=== PATIENT | female | born 1975 | race Caucasian/White ===

== ENCOUNTER 2024-07-07 17:49 | Emergency (ER) | payer OTHER ==
[~2024-07-07] VITALS: Ht 165.1 cm; Wt 94.3 kg
[~2024-07-07 17:49] MED LIST: ALEVE220 MG PO; JUNEL1 EAC1 PO; METOPROLOL SUCC25 MG PO; RIZATRIPTAN5 MG PO
[2024-07-07 20:39] LABS: BILIRUBIN, URINE NEGATIVE (negative); BLOOD/HGB, URINE NEGATIVE (Negative); KETONE, URINE NEGATIVE (Negative); LEUK ESTERASE, URINE NEGATIVE (negative); NITRITE, URINE NEGATIVE (negative)
[2024-07-07 20:40] LABS: BASOPHILS 0.2 % (0-2); EOSINOPHILS 1.4 % (0-6); HEMATOCRIT 44.5 % (35.0-50.0); HEMOGLOBIN 15.5 g/dL (12.0-18.0); LYMPHOCYTES 29.5 % (24-44); MCH 32.1 (27-36); MCHC 34.8 g/dl (30-36); MCV 92.3 fl (81-99); MONOCYTES 8.5 % (0-12); NEUTROPHILS 60.4 % (39-80); PLATELET COUNT 253 K/uL (140-440); RBC 4.83 M/ul (4.3-5.7); RDW 13.3 (10.5-15.0)
[2024-07-07] MEDS ORDERED: ondansetron HCL 4 MG/2 ML VIAL IV ONE (20:45)
[2024-07-07] MEDS ORDERED: KETOROLAC TROMETHAMINE 15 MG/ML VIAL IV ONE (20:45)
[2024-07-07] MEDS ORDERED: SODIUM CHLORIDE 0.9% 1,000 ML IV ONE (20:45)
[2024-07-07 20:49] LABS: ALBUMIN/GLOBULIN RATIO 1.03 (1.1-2.4); ANION GAP 12.4 (7-21); BILIRUBIN, TOTAL 0.6 ng/dL (0.2-1.0); BUN/CREATININE RATIO 13.86 (6.0-28.6); CALCIUM 9.3 mg/dL (8.5-10.1); CREATININE, SERUM 1.01 mg/dL (0.55-1.02); POTASSIUM 3.4 mmol/L (3.5-5.1); PROTEIN, TOTAL 7.9 g/dL (6.4-8.2)
[2024-07-07] MEDS ORDERED: HYDROCODON-ACE1 EA10 PO (22:44)
[2024-07-07] MEDS ORDERED: ONDANSETRON ODT8 MG PO (22:44)
[2024-07-07] MEDS ORDERED: ONDANSETRON 4 MG HOME.PACK SL ONE (23:00)
[2024-07-07] MEDS ORDERED: HYDROCODONE BIT/ACETAMINOPHEN 5/325 MG 1 TAB HOME.PACK PO ONE (23:00)
[2024-07-07 23:25] VITALS: BP 130/80
== END 2024-07-07 23:26 | disposition home or self-care (01) ==
LOC: ED 17:49
PROVIDERS: Family Medicine
DX: K80.20 Calculus of gallbladder without cholecystitis without obstruction (principal); Z88.5 Allergy status to narcotic agent; Z79.899 Other long term (current) drug therapy
CPT/HCPCS: 36415; 76705; 80053; 81003; 83690; 85025; 96374; 96375; 99284-25; A9270; J1885; J2405; J7030

== ENCOUNTER 2024-07-09 23:13 | Observation (INO) | payer OTHER ==
[~2024-07-09] VITALS: Ht 165.1 cm; Wt 93.0 kg
[~2024-07-09 23:13] MED LIST changes: +HYDROCODON-ACE1 EA10 PO; +ONDANSETRON ODT8 MG PO
--- OUTSIDE RECORDS SUMMARY | 2024-07-09 23:20 | XMS ---
PreManage Notification: ARACELIS CAMEJO Security Camera Person Events No recent Security Events currently on file CRITERIA MET - [facility] - 2 Visits in 30 Days CARE PROVIDERS There are no care providers on record at this time. Jailyn has no Care Guidelines for this patient. Ayde V[facility]IT COUNT (12 MO.) 2 [facility] NOTE: Visits indicate total known visits. ED/C VISIT TRACKING (12 MO.) [facility]24 23[facility] [place] [facility] COMPLAINT: - ABDOMINAL PAIN 07/07/2024 17:50 [facility] [place] TYPE: Emergency COMPLAINT: - FLANK PAIN DIAGNOSES: - Allergy status to narcotic agent - Calculus of gallbladder without cholecystitis without obstruction - Other fci (current) drug therapy - Right upper quadrant pain INPATIENT VISIT TRACKING (12 MO.) No inpatient visits to display in this time frame [email or web address]
[2024-07-09 23:38] LABS: BASOPHILS 0.6 % (0-2); EOSINOPHILS 0.8 % (0-6); LYMPHOCYTES 25.3 % (24-44); MCH 31.6 (27-36); MCHC 34.1 g/dl (30-36); MCV 92.8 fl (81-99); MONOCYTES 7.7 % (0-12); NEUTROPHILS 65.6 % (39-80); PLATELET COUNT 243 K/uL (140-440); RBC 4.74 M/ul (4.3-5.7); RDW 13.1 (10.5-15.0)
[2024-07-09] MEDS ORDERED: HYDROmorphone HCL 1 MG/ML SYR IV PRN (23:45)
[2024-07-09] MEDS ORDERED: ondansetron HCL 4 MG/2 ML VIAL IV ONE (23:45)
[2024-07-09 23:54] LABS: ALBUMIN 3.7 g/dL (3.4-5.0); ALBUMIN/GLOBULIN RATIO 0.95 (1.1-2.4); ANION GAP 14.2 (7-21); BILIRUBIN, TOTAL 0.8 ng/dL (0.2-1.0); BUN/CREATININE RATIO 13.46 (6.0-28.6); CALCIUM 9.1 mg/dL (8.5-10.1); CREATININE, SERUM 1.04 mg/dL (0.55-1.02); POTASSIUM 4.2 mmol/L (3.5-5.1); PROTEIN, TOTAL 7.6 g/dL (6.4-8.2)
[2024-07-10] VITALS (10 sets, daily range): BP systolic 128–145; BP diastolic 76–91
[2024-07-10] MEDS ORDERED: ACETAMINOPHEN 325 MG TAB PO PRN ×3 (00:45→17:15)
[2024-07-10] MEDS ORDERED: metroNIDAZOLE/SODIUM CHLORIDE 500 MG/100 ML PIGGYBACK IV SCH ×2 (00:45→09:00)
[2024-07-10] MEDS ORDERED: ondansetron HCL 4 MG/2 ML VIAL IV PRN ×3 (00:45→17:15)
[2024-07-10] MEDS ORDERED: droPERidol 5 MG/2 ML VIAL IV ONE (00:45)
[2024-07-10] MEDS ORDERED: HYDROmorphone HCL 1 MG/ML SYR IV PRN ×3 (00:45→17:15)
[2024-07-10] MEDS ORDERED: HYDROmorphone HCL 1 MG/ML SYR IV ONE (00:45)
[2024-07-10] MEDS ORDERED: DEXTROSE 5% - LACTATED RINGERS 1,000 ML IV SCH ×2 (00:45→08:30)
[2024-07-10] MEDS ORDERED: CEFTRIAXONE/SODIUM CHLORIDE 2 GM/100 ML PIGGYBACK IV SCH ×2 (00:45→09:00)
[2024-07-10 05:33] LABS: BASOPHILS 0.2 % (0-2); EOSINOPHILS 0.3 % (0-6); HEMATOCRIT 39.6 % (35.0-50.0); HEMOGLOBIN 13.9 g/dL (12.0-18.0); LYMPHOCYTES 17.6 % (24-44); MCH 32.3 (27-36); MCHC 35.2 g/dl (30-36); MCV 91.7 fl (81-99); MONOCYTES 7.1 % (0-12); NEUTROPHILS 74.8 % (39-80); PLATELET COUNT 217 K/uL (140-440); RBC 4.32 M/ul (4.3-5.7); RDW 12.8 (10.5-15.0)
[2024-07-10 05:45] LABS: ALBUMIN 3.4 g/dL (3.4-5.0); ALBUMIN/GLOBULIN RATIO 0.89 (1.1-2.4); ANION GAP 13.1 (7-21); BILIRUBIN, TOTAL 0.5 ng/dL (0.2-1.0); BUN/CREATININE RATIO 12.64 (6.0-28.6); CALCIUM 8.5 mg/dL (8.5-10.1); CREATININE, SERUM 0.87 mg/dL (0.55-1.02); MAGNESIUM 1.9 mg/dL (1.8-2.4); POTASSIUM 4.1 mmol/L (3.5-5.1); PROTEIN, TOTAL 7.2 g/dL (6.4-8.2)
[2024-07-10] MEDS ORDERED: ACETAMINOPHEN 650 MG SUPP PR PRN (08:30)
[2024-07-10] MEDS ORDERED: PROCHLORPERAZINE EDISYLATE 10 MG/2 ML VIAL IV PRN ×2 (08:30→17:15)
[2024-07-10] MEDS ORDERED: PANTOPRAZOLE SODIUM 40 MG/10 ML VIAL IV SCH (09:00)
[2024-07-10] MEDS ORDERED: ENOXAPARIN SODIUM 40 MG/0.4 ML SYR SUB-Q SCH (09:00)
--- NOTE | 2024-07-10 09:14 | CONS ---
[facility] [address] [place], [place] [address] Signed DATE OF CONSULTATION: 07/10/2024 CHIEF COMPLAINT: Right upper quadrant abdominal pain. HISTORY OF PRESENT ILLNESS: Aracelis is a 49-year-old obese female, who for four days now has been having right upper quadrant epigastric abdominal pain with nausea and some vomiting. She came to the ER on 07/07/2024. She was found to have cholelithiasis without any evidence of cholecystitis. Unfortunately, we did not have any nursing staff to be able to admit her. She went home on Zofran and [place]. She came back with continued symptoms. She has now been admitted and started on Rocephin and Flagyl. In reviewing the ultrasound, she also has a 16 cm lesion in the right lobe of her liver. She has been on oral contraceptive pills since she was a teenager. Of course, the radiologist recommended an MRI. She has a 3.7 cm gallstone with some sludge. The wall was not thickened. There is negative Dean sign and the common bile duct is unremarkable at 2.9 mm. PAST MEDICAL HISTORY: Hypertension, obesity, and postoperative nausea and vomiting. PAST SURGICAL HISTORY: Includes laparoscopic converted to an open appendectomy around 1997 and . SOCIAL HISTORY: She does not smoke or drink. Marina Arreaga is her primary care provider. Darron Ferreira is her at . She has one daughter. 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 FAMILY HISTORY: Her dad of prostate cancer. Maternal grandmother had liver cancer. REVIEW OF SYSTEMS: She told me there is no metal in her body that she is aware of. ALLERGIES: Morphine causes pruritus. MEDICATIONS: [place], Zofran, Aleve, estrogen, metoprolol 25 mg p.o. daily, and rizatriptan. PHYSICAL EXAMINATION: VITAL SIGNS: Her blood pressure is 128/76, heart rate is 76, respiratory rate is 15, her temperature is 98.4, and she is on 97% on room air. She is 5 feet 5 inches, at 93 Electronically Signed By: TRISH STEVENS MD 07/10/24 0914 PATIENT NAME: ARACELIS FERREIRA CONSULTATION DATE OF : 71 REPORT #: [id number] PHYSICIAN: TRISH STEVENS MD PCP: MARINA BLACKMON REPORT IS CONFIDENTIAL AND NOT TO BE RELEASED WITHOUT AUTHORIZATION [facility] [address], [place] [address] Signed kg with a body mass index of 34. GENERAL: Aracelis is a 49-year-old female, lying supine in her hospital bed. She is a little uncomfortable from her upper abdominal pain. LUNGS: Clear to auscultation bilaterally. HEART: Regular rate and rhythm, without murmurs. ABDOMEN: Obese, but soft and a little tender in the right upper quadrant and epigastric area, I cannot palpate a mass. LABORATORY DATA: Her white blood count is 8.2, hemoglobin 13, neutrophils 74, and platelets 217. Total bilirubin 0.5, AST 14, ALT 39, alkaline phosphatase 78, and albumin is 3.4. Beta-hCG is negative. RADIOGRAPHIC STUDIES: Ultrasound from 07/07/2024 is reviewed, there is a 16 cm lesion in the right lobe of her liver. The radiologist is requesting an MRI. There is a 3.7 cm gallstone and associated sludge. The gallbladder wall is not thickened. There is no Dean sign. Common bile duct is unremarkable at 2.9 mm. The intrahepatic bile ducts are not dilated. ASSESSMENT AND PLAN: Aracelis is a 49-year-old obese female, who presents with symptomatic cholelithiasis; however, the ultrasound is concerning for 16 cm lesion in the right lobe of the liver and she has been using oral contraceptive medication since she was a teenager. The radiologist of course is asking for an MRI. I explained to Aracelis it would be christianson if we get that MRI completed before the gallbladder surgery. We will make that effort this morning; hopefully, we can work her in. In the meantime, I reviewed the above findings with her. I brought a brochure on the gallbladder, so we could look at that together. She understands the location and function of the gallbladder. She understands cholelithiasis. We reviewed laparoscopic versus open cholecystectomy. There is risk of surgery including, but not limited to bleeding, infection, scarring, change in contour and skin, damage to bowel, damage to main bile duct, incisional hernias and other unforeseen comorbidities. She is also aware of this lesion in the right lobe of the liver. Hopefully, we could get that MRI done today and get her gallbladder done following the MRI. She has expressed understanding and agrees with the above plan. Trish Stevens MD ALB/MODL /[id number] Electronically Signed By: TRISH STEVENS MD 07/10/24 0914 PATIENT NAME: ARACELIS FERREIRA CONSULTATION DATE OF : 71 REPORT #: [id number] PHYSICIAN: TRISH STEVENS MD PCP: MARINA BLACKMON REPORT IS CONFIDENTIAL AND NOT TO BE RELEASED WITHOUT AUTHORIZATION [address] [place] [address] Signed cc: Patient Chart MD Marina Sol PA Copies: TRISH STEVENS MD, LINDA PA ~ Electronically Signed By: TRISH STEVENS MD 07/10/2414 PATIENT NAME: ARACELIS FERREIRA CONSULTATION DATE OF : 71 REPORT #: [id number] PHYSICIAN: TRISH STEVENS MD PCP: MARINA BLACKMON REPORT IS CONFIDENTIAL AND NOT TO BE RELEASED WITHOUT AUTHORIZATION
[2024-07-10] MEDS ORDERED: LARIN FE 1-201 EACH PO (10:05)
[2024-07-10] MEDS ORDERED: RIZATRIPTAN5 M1 PO (10:06)
[2024-07-10] MEDS ORDERED: SEVOFLURANE 250 ML BTL INH ONE (13:18)
[2024-07-10] MEDS ORDERED: LIDOCAINE HCL 2% 5 ML SDV ONE (13:40)
[2024-07-10] MEDS ORDERED: KETOROLAC TROMETHAMINE 30 MG/ML VIAL ONE (13:40)
[2024-07-10] MEDS ORDERED: ondansetron HCL 4 MG/2 ML VIAL ONE (13:40)
[2024-07-10] MEDS ORDERED: fentaNYL citrate 100 MCG/2 ML VIAL ONE (13:40)
[2024-07-10] MEDS ORDERED: propofoL 200 MG/20 ML VIAL ONE (13:40)
[2024-07-10] MEDS ORDERED: SUGAMMADEX SODIUM 200 MG/2 ML ML ONE (13:40)
[2024-07-10] MEDS ORDERED: dexmedeTOMIDine HCl 200 MCG/2 ML VIAL ONE (13:40)
[2024-07-10] MEDS ORDERED: ACETAMINOPHEN 1,000 MG/100 ML VIAL ONE (13:40)
[2024-07-10] MEDS ORDERED: ROCURONIUM BROMIDE 50 MG/5 ML SYR ONE ×2 (13:40→15:17)
[2024-07-10] MEDS ORDERED: DEXAMETHASONE SOD PHOS 4 MG/ML VIAL ONE (13:40)
[2024-07-10] MEDS ORDERED: SUCCINYLCHOLINE IN 0.9% NACL 200 MG/10 ML SYRINGE ONE (13:40)
[2024-07-10] MEDS ORDERED: LIDOCAINE HCL 2% 20 MG/ML VIAL INJ ONE (13:40)
[2024-07-10] MEDS ORDERED: KETAMINE in NS 50 MG/5 ML SYR ONE (13:41)
[2024-07-10] MEDS ORDERED: SCOPOLAMINE 1 MG/3 DAYS PATCH 1 EACH TDSY ONE (13:41)
[2024-07-10] MEDS ORDERED: BUPIVACAINE HCL 0.25% 50 ML MDV ONE (13:54)
[2024-07-10] MEDS ORDERED: LIDOCAINE 1% W/ EPI 1:200,000 30 ML SDV ONE (13:54)
[2024-07-10] MEDS ORDERED: SODIUM CHLORIDE 0.9% 40 ML IV ONE (13:54)
[2024-07-10] MEDS ORDERED: iopamidoL 30 ML VIAL ONE (13:54)
[2024-07-10] MEDS ORDERED: CEFEPIME HCL/D5W 1 GM/100 ML PIGGYBACK IV SCH (14:00)
[2024-07-10] MEDS ORDERED: LACTATED RINGER'S 1,000 ML IV ONE (15:18)
[2024-07-10] MEDS ORDERED: NALOXONE HCL 0.4 MG SYR IV PRN (17:15)
[2024-07-10] MEDS ORDERED: fentaNYL citrate 50 MCG/ML SDV IV PRN (17:15)
[2024-07-10] MEDS ORDERED: OXYCODONE HCL 5 MG TAB PO PRN (17:15)
[2024-07-10] MEDS ORDERED: IBLOOD GLUCOSE TEST STRIP 1 EA TEST VI PRN (17:15)
[2024-07-10] MEDS ORDERED: droPERidol 5 MG/2 ML VIAL IV PRN (17:15)
[2024-07-10] MEDS ORDERED: DOCUSATE SODIUM 100 MG CAP PO SCH (21:00)
[2024-07-11 00:28] LABS: ALPHA FETOPROTEIN TUMOR MARKER 4 ng/mL (0-9)
[2024-07-11 01:57] VITALS: BP 127/85
[2024-07-11 02:00] VITALS: BP 127/85
[2024-07-11 05:33] LABS: BASOPHILS 0.3 % (0-2); HEMATOCRIT 39.9 % (35.0-50.0); HEMOGLOBIN 13.7 g/dL (12.0-18.0); LYMPHOCYTES 10.1 % (24-44); MCH 31.6 (27-36); MCHC 34.2 g/dl (30-36); MCV 92.5 fl (81-99); MONOCYTES 9.6 % (0-12); PLATELET COUNT 204 K/uL (140-440); RBC 4.32 M/ul (4.3-5.7); RDW 12.8 (10.5-15.0)
[2024-07-11 05:40] VITALS: BP 147/88
[2024-07-11 05:43] VITALS: BP 147/88
[2024-07-11 05:50] LABS: ALBUMIN 2.9 g/dL (3.4-5.0); ALBUMIN/GLOBULIN RATIO 0.81 (1.1-2.4); ANION GAP 13.9 (7-21); BILIRUBIN, TOTAL 0.5 ng/dL (0.2-1.0); BUN/CREATININE RATIO 8.75 (6.0-28.6); CALCIUM 8.6 mg/dL (8.5-10.1); CREATININE, SERUM 0.8 mg/dL (0.55-1.02); PHOSPHORUS, INORGANIC 1.7 mg/dL (2.5-4.9); POTASSIUM 3.9 mmol/L (3.5-5.1); PROTEIN, TOTAL 6.5 g/dL (6.4-8.2)
[2024-07-11] MEDS ORDERED: ENOXAPARIN SODIUM 30 MG/0.3 ML SYR SUB-Q SCH (09:00)
[2024-07-11] MEDS ORDERED: POLYETHYLENE GLYCOL 3350 1 PACKET PO SCH (09:00)
[2024-07-11] MEDS ORDERED: METOPROLOL SUCCINATE 25 MG TABCR PO SCH (09:00)
[2024-07-11] MEDS ORDERED: ENOXAPARIN SODIUM 40 MG/0.4 ML SYR SUB-Q SCH (09:00)
[2024-07-11] MEDS ORDERED: PANTOPRAZOLE SODIUM 40 MG TABEC PO SCH (09:00)
--- NOTE | 2024-07-11 09:33 | OR ---
[facility] [address] [place], [place] [address] Signed DATE OF OPERATION: 07/10/2024 SURGEON: Trish Stevens MD PREOPERATIVE DIAGNOSES: 1. Acute cholecystitis cholelithiasis (3.7 cm). 2. Giant right hepatic hemangioma (16 cm). POSTOPERATIVE DIAGNOSES: 1. Acute cholecystitis cholelithiasis (3.7 cm). 2. Giant right hepatic hemangioma (16 cm). PROCEDURES: 1. Laparoscopic cholecystectomy without intraoperative cholangiogram (prolonged and difficult at two hours and two nurses). 2. Placement subhepatic drain. ESTIMATED BLOOD LOSS: 25 mL. FINDINGS: Aracelis indeed had a very large 3.7 cm gallstone. She had a very thickened nearly intrahepatic gallbladder. She had a few adhesions around her umbilicus and had to be taken down as well. The triangle of Calot was not terribly difficult, but dissecting the gallbladder out of liver was extremely difficult. We had two nurses scrubbed in and it took a total of 2 hours and we omitted the intraoperative cholangiogram. That is more than double the amount of time we normally take. Consequently, the procedure was prolonged and difficult. INDICATIONS: Aracelis is a 49-year-old female who presented with about four days of right upper quadrant abdominal pain. We then have nurses available to us on the of this month, so she was sent home with [employer] [place], that was not working. She came back with ongoing symptoms. She was quite miserable. She was tender in the right upper quadrant, but her white count was normal. Liver function tests were normal. Beta-hCG was negative. The ultrasound showed a 16 cm lesion in the right hepatic lobe. There was a 3.7 cm gallstone and some sludge. There was apparently no gallbladder wall thickening and a negative Dean's sign. Common bile duct was normal at 2.9 mm. We ordered an MRI of the liver to evaluate that lesion. She told me she thinks she was told about this lesion when she was quite young. She has been on oral contraceptives when she was a Electronically Signed By: TRISH STEVENS MD 07/11/24 0933 PATIENT NAME: ARACELIS CAMEJO OPERATIVE REPORT DATE OF : 71 REPORT #: [id number] PHYSICIAN: TRISH STEVENS MD PCP: AGA BLACKMON REPORT IS CONFIDENTIAL AND NOT TO BE RELEASED WITHOUT AUTHORIZATION [facility] [address] [place], [place] [address] Signed teenager. This proved to be a very large hemangioma. I spoke with two different hepatobiliary surgeons with respect to the imaging and the in the finding of the hemangioma. It was felt there was insufficient liver between the two that we could remove that gallbladder here in our [facility]-bed critical access hospital. I had reviewed all this with Aracelis and her . I gave them a brochure on the gallbladder. We discussed the location and function of the gallbladder. We discussed laparoscopic versus open cholecystectomy. There is risk including, but not limited to bleeding, infection, scarring, change in contour of the skin, damage to bowel, damage to main bile duct, incisional hernias and other unforeseen comorbidities. She and her expressed understanding wished to proceed. DESCRIPTION OF PROCEDURE: Aracelis was taken into the operating room placed in the supine position under general endotracheal tube anesthesia. She was already on preoperative antibiotics along with subcutaneous Lovenox. SCDs were utilized. She was then prepped and draped in the usual sterile fashion. All trocars were placed in usual positions under direct visualization of camera without difficulty. We found immediately that her gallbladder was distended and very edematous. We had to suction out the gallbladder in order to grasp the gallbladder elevated in the right upper quadrant. The hemangioma was way up in the right lobe up underneath the rib cage. We dissected out the triangle of Calot with our [place] dissector. We placed a clip across the cystic artery and it was divided. We also put three clips across the cystic duct stump and it was divided. We then slowly and carefully removed the gallbladder from the gallbladder fossa. When we got towards the top half the gallbladder, we had to take out in pieces for better visualization. It was nearly intrahepatic. It was quite difficult dissection. After this, we put the large stone in the gallbladder into the EndoCatch bag. We placed a #7 flat Jhon drain in the subhepatic space and out the right sub costal margin. We held in place at the level of skin with a 2-0 nylon suture. We then used our laparoscopic suturing device to pass 0-Vicryl suture on either side of the fascia of the subxiphoid trocar site. This was tied down to close this fascia primarily. After this, all the gas was allowed to escape and the remaining trocars were removed. We had to extend our supraumbilical trocar site to about 4 cm in order to get the gallbladder out with this very large stone. After this we closed this trocar site with interrupted [id number] 0-Vicryl sutures x3. Local anesthetic was injected into all trocar sites. Each trocar site was irrigated and suctioned out until clear. The skin and dermis of each trocar site was closed with interrupted 3-0 subcuticular Monocryl sutures. Dry gauze and tape was then applied to all incisions. The gallbladder was passed to our circulating nurse for photodocumentation. After this, Aracelis was awakened from anesthesia, extubated in the OR, and taken to recovery room in stable condition. Electronically Signed By: TRISH STEVENS MD 07/11/24 0933 PATIENT NAME: ARACELIS CAMEJON OPERATIVE REPORT DATE OF : 71 REPORT #: [id number] PHYSICIAN: TRISH STEVENS MD PCP: AGA BLACKMON REPORT IS CONFIDENTIAL AND NOT TO BE RELEASED WITHOUT AUTHORIZATION [address] [address] Signed MD NILDA Sol/MARIEL /[id number] cc: Patient chart RAFA Pendleton MD Copies: TRISH STEVENS MD ~ Electronically Signed By: TRISH STEVENS MD 07/11/24 0933 PATIENT NAME: JHONARACELIS NIA OPERATIVE REPORT DATE OF : 71 REPORT #: [id number] PHYSICIAN: TRISH STEVENS MD PCP: AGA BLACKMON REPORT IS CONFIDENTIAL AND NOT TO BE RELEASED WITHOUT AUTHORIZATION
[2024-07-11 09:53] VITALS: BP 152/87
[2024-07-11] MEDS ORDERED: SODIUM PHOSPHATE 30 MMOL in DEXTROSE 5% 250 ML IV ONE (10:30)
--- NOTE | 2024-07-11 11:41 | DS ---
[facility] [address] [place], [place] [address] Signed ADMISSION DATE: 07/10/2024 DISCHARGE DATE: 07/11/2024 FINAL DIAGNOSES: 1. Acute cholecystitis, cholelithiasis. 2. Giant right hepatic lobe hemangioma (16 cm). PROCEDURES: 1. Laparoscopic cholecystectomy without intraoperative cholangiogram. 2. Subhepatic drain placement. 3. Ultrasound right upper quadrant. 4. MRI of the liver. HISTORY OF PRESENT ILLNESS: Aracelis is a 49-year-old obese female, who had come in to the emergency room with four days of right upper quadrant abdominal pain. She came on the , but we had no nursing staff to admit her. She went home with hydrocodone and Zofran. She came back on the with ongoing pain. White count was still normal and her liver function tests were all normal. Beta-hCG was negative. The ultrasound on the showed this 16 cm lesion in the right hepatic lobe. Of course, an MRI was recommended. She had a 3.7 cm gallstone with some sludge in the gallbladder. The gallbladder wall was not thickened. She had a negative Dean sign. The common bile duct was normal at 2.9 mm. When she got readmitted, we went ahead and ordered the MRI and it showed a rather large hemangioma. We have nothing to compare that to currently. She will probably need that followed up in about six months. Her platelet count was good and she had no heart failure associated with the hemangioma. She had received antibiotics and I was asked to admit her as a general surgeon on-call. HOSPITAL COURSE: Aracelis was admitted as above. I had seen her first thing in the morning. We did the MRI that same morning. I spoke with two hepatobiliary surgeons at [place] and both gave me the same recommendations. There was liver parenchyma between the gallbladder and hemangioma for the surgery. Therefore, we took the time to remove this rather difficult nearly intrahepatic gallbladder. It was quite impressive and took a couple of hours even without the intraoperative cholangiogram. We left a drain in place and it had some serosanguineous fluid. I met her this morning, she looks and feels better already this morning. Her blood work is good except the phosphorus is low. She is tolerating her diet. She has already had some gas. She was hoping to go home at some point today. DISCHARGE PLANS AND MEDICATIONS: Electronically Signed By: TRISH STEVENS MD 07/11/24 1141 PATIENT NAME: ARACELIS CAMEJO DISCHARGE SUMMARY DATE OF : 71 REPORT #: [id number] PHYSICIAN: TRISH STEVENS MD PCP: MARINA BLACKMON REPORT IS CONFIDENTIAL AND NOT TO BE RELEASED WITHOUT AUTHORIZATION [address] [address] Signed Aracelis is going to be discharged to home with a prescription for oxycodone immediate release 10 mg tablets one p.o. q.8 hours p.r.n. for severe postoperative pain. We will dispense 15 tablets with no refills. We will give her Levaquin 500 mg one p.o. daily for five days without refills. She will have Flagyl 250 mg one p.o. t.i.d. for five days without refills. She is welcome to use Tylenol, ibuprofen or Aleve p.r.n. for zbmr-jg-ikpxsigx postoperative pain. That can be purchased [id number]. She is going to resume all her chronic medications at home. She has been written for Colace 100 mg one p.o. b.i.d. for five days without refills. She can use Dulcolax or MiraLAX p.r.n. for constipation. She is going to purchase that fbob-cvv-beziljx as needed. She is welcome to follow a regular diet. She is going to record her drain output each day. She has experience with drainage from her previous bilateral breast reduction surgery. She is welcome to perform her activities of daily living including walking up and down stairs and showering and bathing as usual. She will leave her incisions open to air. She is not to do any heavy pushing, pulling, or lifting over about 20 pounds. I will have her back in my office in about 7 to 10 days for followup. She is welcome to take the week off work. I have reviewed this with Aracelis in detail. She has expressed understanding and agrees with the above plan. We are going to go ahead and replace the phosphorus and if she is doing well afterwards, she is welcome to go home. MD NILDA Sol/MARIEL /[id number] cc: MD Marina Sol PA Copies: TRISH STEVENS MD, LINDA PA ~ Electronically Signed By: TRISH STEVENS MD 07/11/24 1141 PATIENT NAME: ARACELIS CAMEJO DISCHARGE SUMMARY DATE OF : 71 REPORT #: [id number] PHYSICIAN: TRISH STEVENS MD PCP: MARINA BLACKMON REPORT IS CONFIDENTIAL AND NOT TO BE RELEASED WITHOUT AUTHORIZATION
[2024-07-11 14:35] VITALS: BP 132/89
[2024-07-11] MEDS ORDERED: OXYCODONE HCL5 MG PO (16:53)
[2024-07-11] MEDS ORDERED: LEVOFLOXACIN500 MG PO (16:56)
[2024-07-11] MEDS ORDERED: METRONIDAZOLE250 MG PO (17:00)
[2024-07-12] MEDS ORDERED: levoFLOXacin 500 MG TAB PO SCH (06:00)
[2024-07-12] MEDS ORDERED: metroNIDAZOLE 250 MG TAB PO SCH (08:00)
--- NOTE | 2024-07-16 10:46 | PATH ---
[facility] [address] [place], [place] [address] Signed SPECIMEN(S): A GALLBLADDER AND STONE SPECIMEN SOURCE: A. GALLBLADDER AND STONE CLINICAL HISTORY: Cholelithiasis FINAL PATHOLOGIC DIAGNOSIS: Gallbladder, cholecystectomy: - Mild chronic cholecystitis with mucosal erosions. - Cholelithiasis. DWS:silvina MICROSCOPIC EXAMINATION: Histologic sections of all submitted blocks are examined by light microscopy. These findings, together with the gross examination, support the pathologic diagnosis. GROSS DESCRIPTION: The specimen, labeled and designated "Jhon, gallbladder and stone," is received in formalin and consists of Specimen: Previously open/disrupted gallbladder. Dimensions: 10.8 x 7.0 x 2.0 cm in aggregate cm. Serosa: [place]-modi to violaceous and smooth. Cystic Duct: The possible cystic duct margin is inked black and shaved. Calculi: One brown-black ovoid calculus (4.3 x 3.2 x 3.0 cm). Mucosa: Red-brown and trabeculated/attenuated. Wall thickness: 0.2-0.8 cm. Lymph node: No pericystic lymph nodes are grossly identified. Additional: The specimen is received fragmented.. Casing Cooker sections are submitted in (A1). VB (under the direct supervision of a pathologist) The Gross Description was prepared using a voice recognition system. The report was reviewed for accuracy; however, sound-alike word errors, addition and/or deletions may occur. If there is any question about this report, please contact Client Services. PERFORMING LABORATORY: Technical component was performed by [facility], [address] [place] [id number] (CLIA# [id number]). Professional interpretation was PATIENT NAME: ARACELIS CAMEJO PATHOLOGY DATE OF : 71 REPORT #: [id number] PHYSICIAN: TAVIA PATHOLOGY PCP: AGA BLACKMON REPORT IS CONFIDENTIAL AND NOT TO BE RELEASED WITHOUT AUTHORIZATION [facility] [address] [place], [place] [address] Signed performed by [facility], [address] [place] [address], [place] [address] (CLIA#: [id number]). Diagnostician: Adam Tavarez MD Pathologist Electronically Signed 07/16/2024 Copies: ~ PATIENT NAME: ARACELIS CAMEJO PATHOLOGY DATE OF : 71 REPORT #: [id number] PHYSICIAN: TAVIA PATHOLOGY PCP: AGA BLACKMON REPORT IS CONFIDENTIAL AND NOT TO BE RELEASED WITHOUT AUTHORIZATION
== END 2024-07-11 18:20 | disposition home or self-care (01) ==
LOC: ED 23:13 → MS 23:14
PROVIDERS: Family Medicine; ADMIT Colon & Rectal Surgery; ATTEND Colon & Rectal Surgery
PROC: 0FT44ZZ Resection of Gallbladder, Percutaneous Endoscopic Approach (ICD-10-PCS; principal; 2024-07-10 13:30)
DX: K80.12 Calculus of gallbladder with acute and chronic cholecystitis without obstruction (principal); D18.03 Hemangioma of intra-abdominal structures; K66.0 Peritoneal adhesions (postprocedural) (postinfection); I10 Essential (primary) hypertension; E66.9 Obesity, unspecified; Z68.34 Body mass index [BMI] 34.0-34.9, adult; Z79.899 Other long term (current) drug therapy; Z88.5 Allergy status to narcotic agent; Z90.49 Acquired absence of other specified parts of digestive tract
CPT/HCPCS: 00790; 36415; 74183; 80053; 82105; 83690; 83735; 84100; 84703; 85025; 94762; 96365; 96366; 96367; 96372; 96375; 96376; 99284-25; A9270; A9577; G0378; J0131; J0330; J0692; J0696; J0780; J1100; J1171; J1650; J1790; J1885; J2003; J2405; J2470; J2704; J3010; J3490; J7060; J7121